=== PATIENT | male | born 2000 | race African-American/Black ===

== ENCOUNTER 2023-01-17 09:11 | Emergency (ER) | payer OTHER ==
[~2023-01-17] VITALS: Ht 180.3 cm; Wt 77.0 kg
[2023-01-17 09:19] VITALS: O2SAT 98
[2023-01-17] MEDS ORDERED: ZIPRASIDONE MESYLATE 20MG/VIAL IM ONE ×2 (09:45→23:00)
[2023-01-17] MEDS ORDERED: DIPHENHYDRAMINE 50MG/ML VIAL IM ONE (09:45)
[2023-01-17] MEDS: LORAZEPAM 2MG/ML CPJ IM PRN (10:20)
[2023-01-17] MEDS ORDERED: HALOPERIDOL LACTATE 5MG/ML VIAL IM ONE ×2 (13:15→13:45)
[2023-01-17] MEDS ORDERED: LORAZEPAM 2MG/ML CPJ IM PRN ×2 (13:15→13:45)
[2023-01-17 14:31] LABS: BASOPHILS % 0.4 % (0.0-2.0); HEMATOCRIT. 45.7 % (42.0-52.0); HEMOGLOBIN. 15.3 g/dL (14.0-18.0); LYMPHOCYTES % 41.6 % (20.0-50.0); MEAN CORPUSCULAR HEMOGLOBIN 30.6 pg (28.0-32.0); MEAN CORPUSCULAR VOLUME 91.4 fL (80.0-94.0); MEAN PLATELET VOLUME 10.3 fl (7.4-10.4); MONOCYTES % 7.8 % (2.0-8.0); NEUTROPHILS % 48.2 % (40.0-76.0); PLATELET 167 x1000/uL (130-400); RED CELL DISTRIBUTION WIDTH 14.5 % (11.6-14.6)
[2023-01-17 14:40] LABS: CHLORIDE 110 mEq/L (98-107)
[2023-01-17 16:11] LABS: CLARITY URINE CLEAR (CLEAR); COLOR URINE YELLOW (YELLOW); KETONES URINE TRACE (NEGATIVE); LEUKOCYTE ESTERASE URINE 2+ (NEGATIVE); NITRITE URINE NEGATIVE (NEGATIVE); OCCULT BLOOD URINE NEGATIVE (NEGATIVE); PH URINE 6.5 (4.5-8.0); PROTEIN URINE TRACE (NEGATIVE)
[2023-01-17 16:23] LABS: *AMPHETAMINES SCREEN URINE NEGATIVE (NEGATIVE); *BARBITURATES SCREEN URINE NEGATIVE (NEGATIVE); *BENZODIAZEPINES SCREEN URINE PRESUMTIVE POSITIVE (NEGATIVE); *COCAINE SCREEN URINE NEGATIVE (NEGATIVE); CANNABINOID URINE SCREEN PRESUMTIVE POSITIVE (NEGATIVE); METHADONE URINE SCREEN NEGATIVE (NEGATIVE); OPIATES URINE SCREEN NEGATIVE (NEGATIVE); PHENCYCLIDINE URINE SCREEN NEGATIVE (NEGATIVE)
[2023-01-17] MEDS ORDERED: HALOPERIDOL LACTATE 5MG/ML VIAL IM NR (16:30)
[2023-01-17] MEDS: OLANZAPINE 5MG TABLET ODT PO SCH (17:00)
[2023-01-18] MEDS ORDERED: HALOPERIDOL LACTATE 5MG/ML VIAL IM ONE (02:00)
[2023-01-18] MEDS ORDERED: DIPHENHYDRAMINE 50MG/ML VIAL IM ONE (02:00)
[2023-01-18] MEDS ORDERED: LORAZEPAM 2MG/ML CPJ IM ONE (02:00)
[2023-01-18] MEDS ORDERED: LORAZEPAM 2MG/ML CPJ IM STA (05:34)
[2023-01-18] MEDS ORDERED: OLANZAPINE 10 MG/VIAL IM ONE (05:45)
[2023-01-18] MEDS: OLANZAPINE 5MG TABLET ODT PO SCH (09:00)
[2023-01-18] MEDS: LORAZEPAM 2MG/ML CPJ IM PRN (11:58)
[2023-01-18 15:09] VITALS: BP 126/88; PULSE 82; RESP 16; TEMP 98.6
== END 2023-01-18 15:17 | disposition short-term general hospital (02) ==
LOC: ER 09:11
DX: F23 Brief psychotic disorder (principal); R45.851 Suicidal ideations; F31.9 Bipolar disorder, unspecified; Z20.822 Contact with and (suspected) exposure to COVID-19; Z79.899 Other long term (current) drug therapy
CPT/HCPCS: 80053; 80305; 81003; 85025; 36415; 96372 ×2; 99291; 87426; J1200 ×2; J1630 ×2; J2060 ×2; J3486; C9803; Z7610 ×2; J3490; 99285